=== PATIENT | female | born 1970 | race Hispanic/Latino ===

== ENCOUNTER 2018-06-01 09:00 | Outpatient (RCR) | payer BC | END 2018-06-02 | LOC: PT 09:00 | PROVIDERS: ATTEND Specialist | DX: S23.3XXA Sprain of ligaments of thoracic spine, initial encounter (principal); M54.6 Pain in thoracic spine; M54.5 Low back pain; R29.3 Abnormal posture | CPT/HCPCS: 97139 ==

== ENCOUNTER 2018-07-01 10:56 | Outpatient (RCR) | payer BC | END 2018-07-02 | LOC: PT 10:56 | PROVIDERS: ATTEND Specialist | DX: M54.5 Low back pain (principal); M54.6 Pain in thoracic spine; R29.3 Abnormal posture | CPT/HCPCS: 97010 ×3; 97110 ×12; 97140 ×4; G0283 ==

== ENCOUNTER 2018-07-30 14:59 | Outpatient (RCR) | payer BC | END 2018-08-02 | LOC: PT 14:59 | PROVIDERS: ATTEND Specialist | DX: M54.5 Low back pain (principal); M54.6 Pain in thoracic spine; R29.3 Abnormal posture ==

== ENCOUNTER 2018-08-05 13:19 | Outpatient (RCR) | payer BC | END 2018-09-02 | LOC: PT 13:19 | PROVIDERS: ATTEND Specialist | DX: M54.5 Low back pain (principal); M54.6 Pain in thoracic spine; R29.3 Abnormal posture ==

== ENCOUNTER 2020-04-30 08:39 | Emergency (ER) | payer BC ==
[~2020-04-30] VITALS: Ht 162.6 cm; Wt 72.6 kg
[2020-04-30] MEDS ORDERED: BACITRACIN ZINC 0.9GM TP ONE ×2 (08:57→09:00)
[2020-04-30] MEDS ORDERED: HYDROCODONE/APAP 5MG-325MG TAB ONE (08:59)
[2020-04-30] MEDS ORDERED: HYDROCODONE/APAP 5MG-325MG TAB PO ONE (09:00)
[2020-04-30] MEDS ORDERED: ONDANSETRON HCL 4 MG ORAL DISINTEGRATING TAB ONE (09:00)
[2020-04-30] MEDS ORDERED: ONDANSETRON HCL 4 MG ORAL DISINTEGRATING TAB PO ONE (09:00)
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
[2020-04-30] MEDS ORDERED: CLINDAMYCIN HC300 MG PO (09:18)
[2020-04-30] MEDS ORDERED: IBUPROFEN IB200 MG PO (09:18)
[2020-04-30] MEDS ORDERED: ACETAMINOPHEN500 MG PO (09:18)
--- NOTE | 2020-04-30 09:23 | Diagnostic Imaging Report ---
EXAMINATION: KNEE 2 VIEW LT - HOPD INDICATION: Fall COMPARISON: None FINDINGS: Soft tissue irregularity and subcutaneous soft tissue emphysema along the anterior soft tissues of the knee consistent with soft tissue injury/laceration. No underlying acute fracture or dislocation. No substantial joint effusion. No significant degenerative change. IMPRESSION: Soft tissue injury of the anterior knee with subcutaneous emphysema along the subcutaneous soft tissues and along the patellar tendon. No underlying acute osseous injury. Signed by: Caitie Malloy MD on 04/30/2020 9:20 AM
--- OUTSIDE RECORDS SUMMARY | 2020-04-30 09:39 | XMS REPORT | Continuity of Care Document ---
Author Author [facility] t Organization [facility] Address [address] [place] [address] Dr. Gonzalez [address] [place] [id number] Phone Unavailable Care Team Providers Care Fire Management Technician Name Role Phone JAZZ CRYSTAL, KIMBER PCP Lopez PEREZ Attphys Unavailable Payers Payer Name Policy Type Policy Number Effective Date Expiration Date [place] white [employer] [place] Ppo [id number] I [facility] Problems This patient has no known problems. Allergies, Adverse Reactions, Alerts This patient has no known allergies or adverse reactions. Medications This patient has no known medications. Procedures This patient has no known procedures. Encounters Start Date/Time End Date/Time Encounter Type Admission Type [facility] Care Department Encounter ID Source 2018-08-05 13:19:00 2018-09-02 23:59:[address] [facility] [id number] [facility] 2018-07-05 13:18:00 2018-08-02 23:59:[address] [facility] [id number] [facility] 2018-06-04 10:18:00 2018-07-02 23:59:[address] [facility] [id number] [facility] 2018-05-06 14:02:00 2018-06-02 23:59:[address] [facility] [id number] [facility] Results Test Description Test Time Test Comments Results Result Comments Source KNEE 2 VIEW LT - HOPD 2020-04-30 09:18:00 [facility] [address] [place], [place] [address] Patient Name: CATALINA MA MR #: [id number] : 1970 Age/Sex: 50/F Req #: [id number] [facility] Physician: Ordered by: ALLEN PEREZ MD Report #: [id number] Location: [facility] Room/Bed: Procedure: [id number] HOPD/KNEE 2 VIEW LT - HOPD Exam Date: 04/30/20 Exam Time: 915 REPORT STATUS: Signed EXAMINATION: KNEE 2 VIEW LT - HOPD INDICATION: Fall COMPARISON: None FINDINGS: Soft tissue irregularity and subcutaneous soft tissue emphysema along the anterior soft tissues of the knee consistent with soft tissue injury/lac eration. No underlying acute fracture or dislocation. No substantial joint effusion. No significant degenerative change. IMPRESSION: Soft tissue injury of the anterior knee with subcutaneous emphysema along the subcutaneous soft tissues and along the patellar tendon. No underlying acute osseous injury. Signed by: Shivam Aragon MD on 04/30/2020 9:20 AM Dictated By: SHIVAM ARAGON MD 9 Transcribed By: LAMINE on 04/30/20919 COPY TO: ALLEN PEREZ MD
== END 2020-04-30 09:29 | disposition home or self-care (01) ==
LOC: FSED 08:53
DX: S80.212A Abrasion, left knee, initial encounter (principal); W17.89XA Other fall from one level to another, initial encounter; Y92.89 Other specified places as the place of occurrence of the external cause; E03.9 Hypothyroidism, unspecified
CPT/HCPCS: 73560; 99284; Q0162